=== PATIENT | female | born 1945 | race Caucasian/White ===

== ENCOUNTER → 2016-07-02 | Outpatient (CLI) | payer BC, MEDICARE ==
[~2016-07-02] MED LIST: ATOR20TA59 PO; CA C1TAB81 PO; CALC600T86 PO; LACT1CAP73 PO; METO50TA5 PO; SIMV40TA82 PO; SOLI5TAB6 PO; VERA120T3 PO; ZINC50TA39 PO; [UNRECOGNIZED DRUG - CODE] PO; [UNRECOGNIZED DRUG - CODE] PO; metoprolol PO
== END ==
LOC: IMA 10:13
PROVIDERS: ATTEND Family Medicine
DX: Z12.31 Encounter for screening mammogram for malignant neoplasm of breast (principal); Z90.12 Acquired absence of left breast and nipple; N64.89 Other specified disorders of breast; N64.59 Other signs and symptoms in breast; M81.0 Age-related osteoporosis without current pathological fracture
CPT/HCPCS: 77063; 77080; G0202

== ENCOUNTER 2016-07-09 05:46 | Day surgery (SDC) | payer BC, MEDICARE ==
[~2016-07-09] VITALS: Ht 154.9 cm; Wt 75.6 kg
[~2016-07-09 05:46] MED LIST changes: -ATOR20TA59 PO; -METO50TA5 PO; -SIMV40TA82 PO; -metoprolol PO
--- OUTSIDE RECORDS SUMMARY | 2016-07-09 05:50 | XMS REPORT | Referral Summary ---
Author Organization Unknown Address Unknown Phone Unavailable Care Team Providers Care Strapping Machine Tender Name Role Phone PratikalyssaHari Primary Care Physician [phone] Encounter [facility] [id number] Date(s): 05/10/14 - 05/10/14 [facility] [place] [address] [place], [place] [address] Discharge Diagnosis: Severe obstructive sleep apnea Discharge Disposition: Home or Self Care Attending Physician: Myriam Fox Admitting Physician: Myriam Fox Vital Signs Most recent to 1 oldest [Reference Range]: Peripheral Pulse 77 bpm Rate [60-100 bpm] (05/10/14 9:23 AM) Blood Pressure 108/64 mmHg [90-140/60-90 mmHg] (05/10/14 9:23 AM) Most recent to 1 oldest [Reference Range]: SpO2 98 % (05/10/14 9:23 AM) Problem List Condition Effective Dates Status Health Status Informant Obesity(Confirmed) Active patient Severe obstructive Active sleep apnea(Confirmed) Allergies, Adverse Reactions, Alerts Substance Reaction Severity Status penicillin Active Medications Aspir 81 81 mg, Oral, Daily, 0 Refill(s) Start Date: 02/08/14 Status: Ordered atorvastatin 20 mg oral tablet 1 tabs, Oral, Daily, # 30 tabs, 0 Refill(s) Start Date: 05/10/14 Status: Ordered Metoprolol Succinate ER 50 mg oral tablet, extended release 1 tabs, Oral, Daily, # 30 tabs, 0 Refill(s) Start Date: 01/31/14 Status: Ordered multivitamin Daily, 0 Refill(s) Start Date: 02/08/14 Status: Ordered verapamil 40 mg oral tablet 1 tabs, Oral, Daily, # 270 tabs, 0 Refill(s) Start Date: 05/10/14 Status: Ordered VESIcare 10 mg oral tablet 1 tabs, Oral, Daily, # 30 tabs, 0 Refill(s) Start Date: 01/31/14 Status: Ordered Results No data available for this section Immunizations No data available for this section Procedures No data available for this section Social History Social History Type Response Smoking Status Never smoker Assessment and Plan Extracted from: Title: Office Visit Note Author: Myriam Fox Date: 05/10/14 Assessment/Plan 1.Severe obstructive sleep apnea - Adequate treatment with CPAP symptomatically and per objective download at current pressure withexcellent adherence to therapy. Continue CPAP with all sleep at 9cm. Order was sent to [facility] for supplies at last visit.Overnight oximetry on CPAP at 9cm and RA to ensure adequate oxygenation during sleep with her underlying cardiac history. F/u in 1 year. -CPAP download reviewed with the patient and patient is complying with and benefitting from treatment. -Avoid driving , partaking in hazardous activities, or operating heavy machinery if drowsy. -Continue appropriate cleaning of the machine/humidifier and update of all supplies including mask , tubing , and filters . -Return for follow-up in [address] Iqbal . Return/call sooner if any problems arise in the meantime.
--- OUTSIDE RECORDS SUMMARY | 2016-07-09 05:50 | XMS REPORT | Referral Summary ---
Author Author [facility] Organization [facility] Address Unknown Phone Unavailable Care Team Providers Care Incident Response Engineer Name Role Phone Hari Bridges Primary Care Physician [phone] Encounter [facility] [id number] Date(s): 12/02/15 - 12/02/15 [facility], [place] [address] [address] [place] [address] Discharge Diagnosis: Severe obstructive sleep apnea Discharge Disposition: 01-Home or Self Care Attending Physician: Myriam Fox Vital Signs Most recent to 1 oldest [Reference Range]: Peripheral Pulse 67 bpm Rate [60-100 bpm] (12/02/15 10:07 AM) Blood Pressure 122/72 mmHg [90-140/60-90 mmHg] (12/02/15 10:07 AM) SpO2 96 % (12/02/15 10:07 AM) Problem List Condition Effective Dates Status [...] Office Visit Note Author: Myriam Fox Date: 12/02/15 Assessment/Plan 1.Severe obstructive sleep apnea - Adequate treatment with CPAP symptomatically and objectively at current pressure withexcellent adherence to therapy. Order to [facility] to establish for supplies. Continue CPAP with all sleep at 10cm. -CPAP download reviewed with the patient and patient is complying with and benefitting from treatment. -Avoid driving , partaking in hazardous activities, or operating heavy machinery if drowsy. -Continue appropriate cleaning of the machine/humidifier and update of all supplies including mask , tubing , and filters . -Return for follow-up in 1 year . Return/call sooner if any problems arise in the meantime.
--- OUTSIDE RECORDS SUMMARY | 2016-07-09 05:50 | XMS REPORT | Referral Summary ---
Author Organization Unknown Address Unknown Phone Unavailable Care Team Providers Care Camera Operator Name Role Phone YulianaHari Primary Care Physician [phone] Encounter [facility] [id number] Date(s): 05/10/14 - 05/10/14 [facility] [place] [address] [place], [place] [address] Discharge Disposition: Home or Self Care Attending Physician: Myriam Fox Admitting Physician: Myriam Fox Vital Signs No data available for this section Problem List Condition Effective Dates Status Health [...] Smoking Status Never smoker Assessment and Plan No data available for this section
--- OUTSIDE RECORDS SUMMARY | 2016-07-09 05:50 | XMS REPORT | Referral Summary ---
Author Author [facility] [place] Organization [facility] [place] Address Unknown Phone Unavailable Care Team Providers Care Ski Patrol Name Role Phone Hari Bridges Primary Care Physician [phone] Encounter [facility] [id number] Date(s): 04/25/15 - 04/25/15 [facility] [place] [address] [facility], [facility] [address] [place] [address] Discharge Diagnosis: Severe obstructive sleep apnea Discharge Disposition: 01-Home or Self Care Attending Physician: Bryan Dennis MD Admitting Physician: Bryan Dennis MD Vital Signs Most recent to 1 oldest [Reference Range]: Peripheral Pulse 76 bpm Rate [60-100 bpm] (04/25/15 10:28 AM) Blood Pressure 118/68 mmHg [90-140/60-90 mmHg] (04/25/15 10:28 AM) SpO2 93 % (04/25/15 10:28 AM) Problem List Condition Effective Dates Status [...] Extracted from: Title: Office Visit Note Author: Bryan Dennis Date: 04/25/15 MD Assessment/Plan 1.Severe obstructive sleep apnea - Excellent compliance and adequate response to therapy. - Patient reports controlled symptoms with CPAP use. - Objective therapy report from CPAP unit confirms compliance and controlled AHI. - Patient is advised to avoid driving or other potentially harmful activities if sleepy, drowsy or otherwise impaired. - Weight loss recommended. - Follow up yearly.
--- OUTSIDE RECORDS SUMMARY | 2016-07-09 05:50 | XMS REPORT | Referral Summary ---
Author Organization Unknown Address Unknown Phone Unavailable Care Team Providers Care Meat Pickler Name Role Phone PratikalyssaHari Primary Care Physician [phone] Encounter [facility] [id number] Date(s): 07/05/14 - 07/05/14 [facility] [place] [address] [place], [place] [address] Discharge Disposition: Home or Self Care Attending Physician: Myriam Fox Admitting Physician: Myriam Fox Referring Physician: Myriam Fox Vital Signs No data [...]
--- OUTSIDE RECORDS SUMMARY | 2016-07-09 05:50 | XMS REPORT | Continuity of Care Document ---
Author Author [facility] Organization [facility] Address Unknown Phone Unavailable Allergies Active Description Code Type Severity Reaction Onset Reported/Identified Relationship to Patient Clinical Status Yes Penicillins 476 Unknown N/A 04/16/2014 Medications Problems Date Dx Coded Attending Type Code Diagnosis Diagnosed By 12/20/2014 Alicia JENNINGS P 465.9 ACUTE UPPER RESPIRATORY INFECTIONS OF UNSPECIFIED SITE 12/20/2014 Alicia JENNINGS S 473.9 UNSPECIFIED SINUSITIS (CHRONIC) 12/20/2014 Alicia JENNINGS A 786.2 COUGH 12/20/2014 Alicia JENNINGS P 465.9 ACUTE UPPER RESPIRATORY INFECTIONS OF UNSPECIFIED SITE 12/20/2014 Alicia JENNINGS S 473.9 UNSPECIFIED SINUSITIS (CHRONIC) 12/20/2014 Alicia JENNINGS A 786.2 COUGH Procedures Results Encounters ACCT No. Visit Date/Time Discharge Status Pt. Type Provider Facility Loc./Unit Complaint [id number] 06/09/2016 21:51:00 ACT Unknown Yamile MITCHELL [facility] NSER SHORTNESS OF AIR [id number] 12/02/2014 09:27:00 ACT Unknown Alicia JENNINGS [facility] NSER NASAL CONGESTION / HAY FEVER
[2016-07-09 06:27] VITALS: BP 130/60; PULSE 56; RESP 14; TEMP 98.2; O2SAT 96; Ht 154.9 cm; Wt 75.6 kg
[2016-07-09] MEDS ORDERED: METO50TA5 PO (07:00)
[2016-07-09] MEDS ORDERED: ATOR20TA59 PO (07:00)
[2016-07-09] MEDS ORDERED: LR 1,000 ML IV SCH (07:00)
[2016-07-09] MEDS ORDERED: LIDOCAINE 1% (10mg/ml) 2ml SDV INJ ONE (07:00)
--- NOTE | 2016-07-09 07:20 | ANESPREOP ---
Anesthesia Record Date and Time DATE: 07/09/16 TIME: 07:12 Pre-Op Diagnosis screening Proposed Surgical Procedure COLONOSCOPY NPO since: mn Allergies: Coded Allergies: Penicillins (Verified Allergy, Mild, RASH, 07/09/16) Ht/Wt/BMI Height: 5 ' 1.00 " Weight: 75.600 kg BMI: 31.5 kg/m2 Vital Signs Date Time Temp Pulse Resp B/P Pulse Ox O2 Delivery O2 Flow Rate FiO2 07/09/16 06:27 98.2 56 14 130/60 96 Room Air Medications Inpatient Medications Current Medications Medications (Trade) Dose Ordered Sig/Waldemar Start Time Stop Time Status Last Admin Dose Admin Lactated Ringer's (Lactated Ringers) 1,000 ml @ 50 mls/hr Q20H 07/09/16 07:00 07/09/16 07:02 50 MLS/HR Aspirin (Low Dose Aspirin) 81 Mg Tablet.dr, 81 MG PO HS, (Reported) Last Taken: on 07/04/16 Atorvastatin Calcium (Atorvastatin Calcium) 20 Mg Tablet, 1 TAB PO HS, (Reported) Last Taken: on 07/09/16 0400 Ca Cmb No.1/Vit D3/B-6/FA/B12 (Vitamin D3 1, 000 Unit Tablet) 1 Each Tablet, 1 TAB PO DAILY, (Reported) Last Taken: on 07/04/16 Calcium Carbonate (Calcium) 600 Mg Tablet, 600 MG PO BID, (Reported) Last Taken: on 07/04/16 Lactobacillus Combination No.4 (Probiotic) 1 Each Capsule, 1 CAP PO DAILY, (Reported) Last Taken: on 07/04/16 Metoprolol Tartrate (Metoprolol Tartrate) 50 Mg Tablet, 50 MG PO DAILY, (Reported) Take 1 tablet, by mouth, 2 times a day with meals. Last Taken: on 07/09/16 0400 Multivitamins W-Minerals (One Daily 50 Plus) 1 Tab Tablet, 1 TAB PO DAILY, (Reported) Last Taken: on 07/04/16 Solifenacin Succinate (Vesicare) 5 Mg Tablet, 10 MG PO DAILY, (Reported) Take 2 (5 mg) tablets, by mouth, one time a day. Last Taken: on 07/04/16 Verapamil HCl (Calan Sr) 120 Mg Tablet, 120 MG PO DAILY Last Taken: on 07/09/16 0400 Zinc (Zinc) 50 Mg Tablet, 50 MG PO DAILY, ( Reported) Last Taken: on 07/04/16 Currently on Beta Nava: Yes Beta Nava Last Taken: 07/09/16 0400 Medical/Surgical History Anesthesia PMH: Reports: *Angina (? mi, Dr. Tom hollis 6 months ago, ) , *Dyspnea, *Hypertension, Arthritis (hands and rt knee), Cancer (L. BREAST - 1985), Cardiac Arrythmia (decrease blood pressure before pacemaker ), Deep Vein Thrombosis (DVT IN LT LEG IN 1990), Reflux, Seizures (ONE AGE 14, neg for epilepsy ), Sleep Apnea, Denies: *Diabetes, *TN, Anesthesia Reactions (NO AIRWAY ISSUES, VOMITING), Asthma, Blood Transfusion Reac, CHF, COPD, Clotting Problems, Glaucoma, Hepatitis, Hiatal Hernia, Malignant Hyperthermia, Pneumonia , Renal Disease, Rheumatic Fever, Thyroid Disease, Tuberculosis Smoking Status: Never smoker Has pt. smoked today?: No Use Chewing Tobacco?: No Second Hand Exposure: No Substance Use Type: does not use Alcohol Intake: none HX of Last Menstrual Period: HYST. 1990 Past Surgical History Orthopedic Surgeries: No Abdominal Surgeries: Yes - kaya Genitourinary Surgeries: No Cardiac Surgeries: Yes - heart cath, pacemaker/def. per h&p Endocrine Surgeries: No Reproductive Surgeries: - C SECTION X 2 ; MASTECTOMY ON LT; HYST Neurological Surgeries: Ear Surgeries: Nose Surgeries: Throat Surgeries: Yes - tonsils Other Surgeries: Anesthesia Adverse Reactions: FOUND none Family Hx of Anesthesia Advers: none Hx of Motion Sickness: No Pertinent Findings EKG Rhythm: Paced Physical Exam Respiratory: Bilat breath sounds equal, Lungs clear Cardiovascular: FOUND Regular rate, rhythm, FOUND No murmur Airway Assessment Mallampati Score: III TMD: 2 Fingerbreadths Overall Assessment: May Be Diff Intubation ASA: 3 Plan Anesthesia Plan: TIVA, MAC Discussion Discussed risks/options/alternatives of anesthesia and questions answered. Patient consents. Nursing pain assessment noted. Attestation Statement Prior to the delivery of any anesthetic medication, I examined the patient, developed the plan, obtained the patient's consent and discussed the risk and benefits of the procedure with the patient/guardian. PRITESH CARVALHO CRNA Jul 09, 2016 07:17
[2016-07-09] MEDS ORDERED: PROPOFOL 500mg 50 ML IV ONE (07:40)
[2016-07-09] MEDS ORDERED: LIDOCAINE 2% (20mg/ml) 5ml PF SDV ONE (07:40)
[2016-07-09] MEDS ORDERED: FENTANYL 100mcg/2ml INJECTION ONE (07:48)
[2016-07-09 08:20] VITALS: BP 131/60; PULSE 60; RESP 12; TEMP 97.5; O2SAT 95
[2016-07-09 08:33] VITALS: BP 106/55; PULSE 57; RESP 16; O2SAT 93
[2016-07-09 08:45] VITALS: BP 141/63; PULSE 51; RESP 16; O2SAT 91
[2016-07-09 09:00] VITALS: BP 147/63; PULSE 50; RESP 16; O2SAT 95
--- NOTE | 2016-07-09 10:58 | OPNOTEF ---
DATE OF PROCEDURE: 07/09/2016 SURGEON : Cosmo Bridges MD PREOPERATIVE DIAGNOSIS Colorectal cancer surveillance. POSTOPERATIVE DIAGNOSIS Colorectal cancer surveillance, mild diverticulosis, colonic polyps at 70 cm, 75 cm x 2, 80 cm, cecal polyp, 65 cm and 45 cm. PROCEDURE: Colonoscopy with polypectomy via snare technique. ANESTHESIA: TIVA. BRIEF HISTORY/INDICATIONS Cara is a 70-year-old female patient of mine who was seen in the office for a comprehensive exam. We discovered it had been many years since her last colonoscopy, so we decided to proceed with a colonoscopy. For completeness, please refer to office notes. FINDINGS Upon colonoscopy there was no evidence for angiodysplastic lesions or santana malignancies. The patient was found to have mild diverticulosis. The patient was also found to have seven colonic polyps. These polyps were located at 70 cm, 75 cm x 2, 80 cm, cecal polyp, 65 cm and 45 cm. All polyps were removed and sent to pathology. DESCRIPTION OF PROCEDURE After informed consent was obtained, the patient was brought to the endoscopy suite and placed on the table in the left lateral decubitus position. The patient subsequently underwent total intravenous anesthesia by the nurse library aide per my request. Next, a digital rectal examination was performed; normal sphincter tone. No rectal masses were appreciated. An Olympus colonoscope was inserted in the anus and advanced with the lumen of the colon under direct visualization at all times until the cecum was ascertained. Triangulation of the tenia coli, ileocecal valve and appendiceal lumen were all visualized. The scope was then slowly withdrawn, again while maintaining visualization of the lumen at all times. As stated above, the entire colon was without evidence for angiodysplastic lesions or santana malignancies. The patient was found to have mild diverticulosis. The patient was found to have seven colonic polyps as described above, removed via snare polypectomy technique and submitted for pathologic evaluation. Photographs were obtained for documentation. The scope was continued to be withdrawn until it was removed from the patient's anal verge. The patient tolerated the procedure without difficulty and was sent back to the preoperative area in stable condition. We will await the biopsies to make further recommendations. I am suspecting we will be looking at a 3-year, possibly even 1-year colonoscopy due to the number of polyps and their characteristics. ELIOT
== END 2016-07-09 09:16 | disposition home or self-care (01) ==
LOC: NSC 05:46
PROVIDERS: ATTEND Family Medicine
DX: Z12.11 Encounter for screening for malignant neoplasm of colon (principal); D12.0 Benign neoplasm of cecum; D12.6 Benign neoplasm of colon, unspecified; K57.30 Diverticulosis of large intestine without perforation or abscess without bleeding; E11.9 Type 2 diabetes mellitus without complications; E78.5 Hyperlipidemia, unspecified; I10 Essential (primary) hypertension; I42.2 Other hypertrophic cardiomyopathy; M81.0 Age-related osteoporosis without current pathological fracture; G47.30 Sleep apnea, unspecified; Z79.899 Other long term (current) drug therapy
CPT/HCPCS: 45385; J2704; J3010; J7120